=== PATIENT | female | born 1970 | race Caucasian/White ===

== ENCOUNTER 2018-03-14 13:04 | Outpatient (CLI) | payer OTHER ==
--- NOTE | 2018-03-14 14:20 | RAD ---
LEFT HIP TWO VIEWS: History: Left hip pain. FINDINGS/IMPRESSION: No fracture, dislocation, or bony destruction is seen. Joint space is fairly well maintained. POS: TE[facility]A
== END 2018-03-14 13:05 | disposition home or self-care (01) ==
LOC: BICRAD 13:04
DX: M25.552 Pain in left hip (principal)

== ENCOUNTER 2019-01-28 09:44 | Outpatient (CLI) | payer OTHER ==
--- NOTE | 2019-01-28 11:51 | RAD ---
LEFT FOOT 3 VIEWS: Date: 01/28/19 HISTORY: Foot pain. FINDINGS: Tarsals are intact. The metatarsals and phalanges are intact. MTP joints are unremarkable. IMPRESSION: No acute abnormality. POS: OFF
== END 2019-01-28 09:45 | disposition home or self-care (01) ==
LOC: BICRAD 09:44
PROVIDERS: ATTEND Family Medicine
DX: M79.672 Pain in left foot (principal)

== ENCOUNTER 2019-04-02 09:39 | Emergency (ER) | payer SELFPAY ==
[2019-04-02] MEDS ORDERED: Aspirin Chewable 81 MG TAB ONE (10:22)
--- NOTE | 2019-04-02 10:35 | RAD ---
XR Chest 1 View Portable HISTORY: Orthopnea. COMPARISON: None. FINDINGS: Heart size and mediastinum are within normal limits. The lungs are clear of infiltrates. Th ere are no significant bony findings. IMPRESSION: No active intrathoracic disease.
[2019-04-02 10:37] LABS: #Basophils 0.1 thou/uL (0.0-0.2); #Eosinphils 0.2 thou/uL (0.0-0.7); #Lymphocytes 2.2 thou/uL (1.20-3.40); #Monocytes 0.5 thou/uL (0.11-0.59); #Neutrophils 4.2 thou/uL (1.40-6.50); %Basophils 1.1 % (0.0-1.0); %Eosinophils 3.4 % (0.0-10.0); %Monocytes 6.5 % (0.0-10.0); Hemoglobin 13.3 g/dL (12.0-16.0); Mean Corpuscular HGB CONC 33.2 g/dL (32.0-36.0); Mean Corpuscular Hemoglobin 29.5 pg (27.0-31.0); Mean Platelet Volume 8.5 fL (7.4-10.4); Platelet Count 176 thou/uL (130-400); Red Blood Cell (RBC) Count 4.51 mill/uL (4.20-5.40); White Blood Cell (WBC) Count 7.2 thou/uL (4.8-10.8)
[2019-04-02 10:58] LABS: Anion Gap 13 mmol/L (10-20); BUN (Urea Nitrogen) 9 mg/dL (7.0-18.7); CK (CPK) 51 U/L (29-168); Calc. Creatinine Clearance 0 mL/min (70-130); Calcium 9.5 mg/dL (7.8-10.44); Carbon Dioxide 27 mmol/L (22-29); Chloride 104 mmol/L (98-107); Estimated GFR-MDRD 74; Glucose 91 mg/dL (70-105); Potassium 4.7 mmol/L (3.5-5.1); Sodium 139 mmol/L (136-145)
== END 2019-04-02 11:18 | disposition home or self-care (01) ==
LOC: ERS 09:39
DX: R07.89 Other chest pain (principal); R06.01 Orthopnea; E78.00 Pure hypercholesterolemia, unspecified; M19.90 Unspecified osteoarthritis, unspecified site; Z79.899 Other long term (current) drug therapy
CPT/HCPCS: 36415; 71045; 80048; 82550; 84484; 85025; 93005

== ENCOUNTER 2022-03-13 09:56 | Outpatient (CLI) | payer BC | END 2022-03-13 09:57 | disposition home or self-care (01) | LOC: BICMAMMO 09:56 | PROVIDERS: ATTEND Family Medicine | DX: Z12.31 Encounter for screening mammogram for malignant neoplasm of breast (principal) | CPT/HCPCS: 77063; 77067 ==